=== PATIENT | male | born 1960 | race Caucasian/White ===

== ENCOUNTER 2017-06-13 06:01 | Emergency (ER) | payer MEDICAID ==
[2017-06-13] MEDS ORDERED: HYDROMORPHONE HCL INJ/PF 2 MG/ML AMPULE IV ONE (07:27)
[2017-06-13] MEDS ORDERED: PROMETHAZINE HCL INJ 50 MG/1 ML VIAL IM ONE (07:28)
[2017-06-13] MEDS ORDERED: PROMETHAZINE HCL INJ 25 MG/1 ML VIAL ONE (07:34)
--- NOTE | 2017-06-13 07:50 | ER Document Report ---
ED Neck/Back Problem - General Chief Complaint: Back Pain Stated Complaint: BACK PAIN Time Seen by Provider: 06/13/17 07:41 Mode of Arrival: Ambulatory Information source: Patient Notes: History of complain-56 years old male presents today with right lower back pain as well as diffuse abdominal pain more so on the right lower quadrant for the last few days. Earlier this morning it got worse therefore present to the ED. Associated with nausea no vomiting. Denies any fever chills denies any dysuria frequency or urgency. Denies any other constitutional symptoms REVIEW OF SYSTEMS: CONSTITUTIONAL : Denies fever, chills, or sweats. Denies recent illness. EENT: Denies eye, ear, throat, or mouth pain or symptoms. Denies nasal or sinus congestion or discharge. Denies throat, tongue, or mouth swelling or difficulty swallowing. CARDIOVASCULAR: Denies chest pain. Denies palpitations or racing or irregular heart beat. Denies ankle edema. RESPIRATORY: Denies cough, cold, or chest congestion. Denies shortness of breath, difficulty breathing, or wheezing. GASTROINTESTINAL: vomiting, or diarrhea. Denies blood in vomitus, stools, or per rectum. Denies black, tarry stools. Denies constipation. GENITOURINARY: Denies difficulty urinating, painful urination, burning, frequency, blood in urine, or discharge. MUSCULOSKELETAL: Denies back or neck pain or stiffness. Denies joint pain or swelling. SKIN: Denies rash, lesions or sores. HEMATOLOGIC : Denies easy bruising or bleeding. LYMPHATIC: Denies swollen, enlarged glands. NEUROLOGICAL: Denies confusion or altered mental status. Denies passing out or loss of consciousness. Denies dizziness or lightheadedness. Denies headache. Denies weakness or paralysis or loss of use of either side. Denies problems with gait or speech. Denies sensory loss, numbness, or tingling. Denies seizures. PSYCHIATRIC: Denies anxiety or stress. Denies depression, suicidal ideation, or homicidal ideation. ALL OTHER SYSTEMS REVIEWED AND NEGATIVE. Dictation was performed using [employer] recognition software PHYSICAL EXAMINATION: GENERAL: Patient seems to be in moderate pain. HEAD: Atraumatic, normocephalic. EYES: Pupils equal round and reactive to light, extraocular movements intact, sclera anicteric, conjunctiva are normal. ENT: Nares patent, oropharynx clear without exudates. Moist mucous membranes. NECK: Normal range of motion, supple without lymphadenopathy LUNGS: Breath sounds clear to auscultation bilaterally and equal. No wheezes rales or rhonchi. HEART: Regular rate and rhythm without murmurs ABDOMEN: Diffusely distended, tender all around more so in the right lower quadrant with rebound tenderness. Musculoskeletal: Normal range of motion, no pitting or edema. No cyanosis. NEUROLOGICAL: Cranial nerves grossly intact. Normal speech, normal gait. Normal sensory, motor exams PSYCH: Normal mood, normal affect. SKIN: Warm, Dry, normal turgor, no rashes or lesions noted. History of complain TRAVEL OUTSIDE OF THE [place] IN LAST 30 DAYS: No - HPI Patient complains to provider of: Pain. No: Injury, Neck, Upper back, Lower back, 6 Onset: Yesterday Where: No: Home, Indoors, Neighbor's, Detention, Outdoors, Public place, School, Sports, Work, Other Onset: Gradual Timing: denies: Constant, Waxing and waning, Still present, Gone now, Better, Worse, Location changes Quality of pain: denies: No pain, Achy, Burning, Cramping, Dull, Fullness, Pressure, Sharp, Stabbing, Throbbing, Other Severity: Severe Pain Level: 4 Context: denies: Became dizzy, Bending, Fainted, Fall/near-fall, Lifting, Seizure, Turning, Other Associated symptoms: Abdominal pain. denies: None, Chest pain, Chills, Constipation, Fever, Incontinence, Like prior neck/back pain, Motor loss, Numbness/tingling, Radiation to arm, Radiation to chest, Radiation to leg, Sensory loss, Sweaty, Unable to urinate, Lower back pain, Upper back pain, Other Exacerbated by: denies: Nothing, Cough/deep breaths, Movement of neck, Movement of trunk, Sitting position, Other Relieved by: denies: Nothing, Supine, Upright position, Remaining still, Lying on R side, Lying on L side, Other - Related Data Allergies/Adverse Reactions: clindamycin [Clindamycin] Allergy (Severe, Verified 06/13/17 06:59) Whelps, sores on skin, itching Iodinated Contrast- Oral and IV Dye [IV Dye, Iodine Containing] Allergy (Severe , Verified 06/13/17 06:59) Tachycardia, ?code Past Medical History - General Cannot obtain history due to: Dementia - Social History Smoking Status: Current Every Day Smoker Chew tobacco use (# tins/day): No Frequency of alcohol use: None Drug Abuse: None Family History: None Patient has suicidal ideation: No Patient has homicidal ideation: No - Past Medical History Cardiac Medical History: Reports: Hx Coronary Artery Disease, Hx Heart Attack - 2010, Hx Hypercholesterolemia, Hx Hypertension Pulmonary Medical History: Denies: Hx Asthma, Hx Bronchitis, Hx COPD, Hx Pneumonia Neurological Medical History: Reports: Hx Cerebrovascular Accident - "Light" 2007. Denies: Hx Seizures Renal/ Medical History: Denies: Hx Peritoneal Dialysis Musculoskeltal Medical History: Reports Hx Arthritis - Immunizations Immunizations up to date: Yes Hx Diphtheria, Pertussis, Tetanus Vaccination: No Review of Systems - Review of Systems Constitutional: No symptoms reported. denies: See HPI, Chills, Diaphoresis, Fever, Malaise, Weakness, Other, Weight gain, Weight loss, Recent illness EENT: denies: No symptoms reported, See HPI, Eye pain, Eye discharge, Blurred vision, Tearing, Double vision, Ear pain, Ear discharge, Nose pain, Nose congestion, Nose discharge, Sinus pressure, Sinus discharge, Throat pain, Difficulty swallowing, Throat swelling, Mouth pain, Mouth swelling, Dental problem, Vertigo, Other Cardiovascular: denies: No symptoms reported, See HPI, Chest pain, Palpitations , Heart racing, Orthopnea, Dyspnea, Syncope, Dizziness, Lightheaded, Edema, Other, Paroxysmal Nocturnal Dysp Respiratory: denies: No symptoms reported, See HPI, Cough, Hurts to breathe, Hemoptysis, Short of breath, Sputum, Stridor, Wheezing, Other Gastrointestinal: Abdominal pain. denies: No symptoms reported, See HPI, Abdomen distended, Diarrhea, Nausea, Vomiting, Constipation, Blood streaked bowels, Poor appetite, Poor fluid intake, Blood in vomit, Black stools, Rectal bleeding, Last bowel movement, Fecal incontinence, Other Genitourinary: denies: No symptoms reported, See HPI, Burning, Dysuria, Discharge, Frequency, Flank pain, Hematuria, Incontinence, Pain, Urgency, Retention, Other Male Genitourinary: denies: No symptoms reported, See HPI, Erectile dysfunction , Testicular pain, Penile discharge, Other Musculoskeletal: denies: No symptoms reported, See HPI, Back pain, Gout, Joint pain, Joint swelling, Muscle pain, Muscle stiffness, Neck pain, Deformity, Leg swelling, Ankle swelling, Other Skin: denies: No symptoms reported, See HPI, Change in color, Change in hair/ nails, Dryness, Lesions, Lumps, Rash, Other Hematologic/Lymphatic: denies: No symptoms reported, See HPI, Anemia, Blood clots, Easy bleeding, Easy bruising, Enlarged lymph nodes, Swollen glands, Other Physical Exam - Vital signs Vitals: Temp Pulse Resp BP Pulse Ox 98.2 F 82 20 135/97 H 94 06/13/17 06:10 06/13/17 06:10 06/13/17 06:10 06/13/17 06:10 06/13/17 06:10 Course - Re-evaluation Re-evalutation: 06/13/17 12:07 Patient is pain-free - Vital Signs Vital signs: Temp Pulse Resp BP Pulse Ox 98.2 F 76 20 152/79 H 95 06/13/17 06:10 06/13/17 07:00 06/13/17 07:00 06/13/17 08:01 06/13/17 07:45 - Laboratory Result Diagrams: 06/13/17 08:11 06/13/17 08:11 Laboratory results interpreted by me: 06/13/17 06/13/17 06/13/17 08:11 08:11 09:10 WBC 16.1 H Absolute Neutrophils 12.5 H Potassium 5.1 H Glucose 119 H Urine Ascorbic Acid 40 H - Diagnostic Test Radiology reviewed: Reports reviewed Radiology results interpreted by me: 06/13/17 12:07 CT of the abdomen was reported by radiologist as right ureteric stone Discharge - Discharge Clinical Impression: Acute abdominal pain in right lower quadrant, Right ureteral stone Leukocytosis Qualifiers: Leukocytosis type: other Qualified Code(s): D72.828 - Other elevated white blood cell count Condition: Fair Disposition: HOME, SELF-CARE Instructions: Kidney Stone ([facility]) Additional Instructions: Please call the urologist, follow with him. If pain persist or return come back to the ED Prescriptions: Ketorolac Tromethamine 10 mg PO TID #30 tablet Oxycodone HCl/Acetaminophen [Percocet 5-325 mg Tablet] 1 - 2 tab PO ASDIR PRN # 15 tablet PRN Reason: Tamsulosin HCl [Flomax] 0.4 mg PO DAILY #30 cap.er.24h Referrals: EDWARDO SCHROEDER MD [Primary Care Provider] - Follow up as needed
[2017-06-13 08:28] LABS: ABSOLUTE BASOPHILS # (AUTO) 0.1 10^3/uL (0.0-0.2); ABSOLUTE EOSINOPHILS # (AUTO) 0.1 10^3/uL (0.0-0.6); ABSOLUTE LYMPHOCYTES (AUTO) 2.2 10^3/uL (0.5-4.7); ABSOLUTE MONOCYTES (AUTO) 1.2 10^3/uL (0.1-1.4); ABSOLUTE NEUT (AUTO) 12.5 10^3/uL (1.7-8.2); BASOPHILS % (AUTO) 0.8 % (0-2); EOSINOPHILS % (AUTO) 0.4 % (0-6); HEMATOCRIT 45.8 % (37.9-51.0); HEMOGLOBIN 15.6 g/dL (13.5-17.0); LYMPHOCYTES % (AUTO) 13.7 % (13-45); MEAN CORPUSCULAR HEMOGLOBIN 31.5 pg (27.0-33.4); MEAN CORPUSCULAR VOLUME 93 fl (80-97); MONOCYTES % (AUTO) 7.7 % (3-13); PLATELET COUNT 221 10^3/uL (150-450); RED BLOOD COUNT 4.95 10^6/uL (4.35-5.55); SEGMENTED NEUTROPHILS % (AUTO) 77.4 % (42-78); TOTAL CELLS COUNTED % (AUTO) 100 %; WHITE BLOOD COUNT 16.1 10^3/uL (4.0-10.5)
[2017-06-13 08:41] LABS: ALANINE AMINOTRANSFERASE 29 U/L (21-72); ALKALINE PHOSPHATASE 71 U/L (38-126); ANION GAP 12 (5-19); ASPARTATE AMINO TRANSFERASE 23 U/L (17-59); BILIRUBIN,DIRECT 0.3 mg/dL (0.0-0.4); BILIRUBIN,TOTAL 0.6 mg/dL (0.2-1.3); BLOOD UREA NITROGEN 12 mg/dL (7-20); CARBON DIOXIDE 24 mmol/L (22-30); CHLORIDE 106 mmol/L (98-107); GLUCOSE 119 mg/dL (75-110); LIPASE 100.9 U/L (23-300); POTASSIUM 5.1 mmol/L (3.6-5.0); SODIUM 141.5 mmol/L (137-145)
[2017-06-13 09:38] LABS: APPEARANCE,URINE CLEAR; BILIRUBIN,URINE NEGATIVE (NEGATIVE); COLOR,URINE YELLOW; GLUCOSE, URINE NEGATIVE (NEGATIVE); KETONES,URINE NEGATIVE (NEGATIVE); LEUKOCYTE ESTERASE,URINE NEGATIVE (NEGATIVE); NITRITE,URINE NEGATIVE (NEGATIVE); PROTEIN,URINE NEGATIVE (NEGATIVE); URINE SPECIFIC GRAVITY 1.017; UROBILINOGEN,URINE NEGATIVE mg/dL (<2.0)
--- NOTE | 2017-06-13 09:57 | RADIOLOGY REPORT (SQ) ---
EXAM DESCRIPTION: CT ABD/PELVIS NO ORAL OR IV COMPLETED DATE/TIME: 06/13/2017 9:29 am REASON FOR STUDY: Acute abdominal pain rule out appendicitis COMPARISON: None. TECHNIQUE: CT scan of the abdomen and pelvis performed without intravenous or oral contrast. Images reviewed with lung, soft tissue, and bone windows. Reconstructed coronal and sagittal MPR images revi ewed. All images stored on PACS. All CT scanners at this facility use dose modulation, iterative reconstruction, and/or weight based d osing when appropriate to reduce radiation dose to as low as reasonably achievable (ALARA). [facility]: Dose Right [facility]: CareDose [facility]: Dose Right [facility]: Teradose 4D [facility]: Smart [email or web address] RADIATION DOSE: CT Rad equipment meets quality standard of care and radiation dose reduction techniq ues were employed. CTDIvol: 13.3 mGy. DLP: 771 mGy-cm.mGy. LIMITATIONS: None. FINDINGS: LOWER CHEST: No significant findings. No nodules or infiltrates. NON-CONTRASTED LIVER, SPLEEN, ADRENALS: Evaluation limited by lack of IV contrast. No identified sign ificant masses. PANCREAS: No masses. No peripancreatic inflammatory changes. GALLBLADDER: No identified stones by CT criteria. No inflammatory changes to suggest cholecystitis. RIGHT KIDNEY AND URETER: No suspicious masses. Assessment limited by lack of IV contrast. 1 mm calc ulus lower pole. No hydronephrosis or hydroureter. LEFT KIDNEY AND URETER: No suspicious masses. Assessment limited by lack of IV contrast. No signifi cant calcifications. No hydronephrosis or hydroureter. AORTA AND RETROPERITONEUM: No aneurysm. No retroperitoneal masses or adenopathy. BOWEL AND PERITONEAL CAVITY: No obvious masses or inflammatory changes. No free fluid. APPENDIX: Normal. PELVIS, BLADDER, AND ABDOMINAL WALL:No abnormal masses. No free fluid. Bladder normal. BONES: No significant findings. OTHER: No other significant finding. IMPRESSION: Small nonobstructing stone right kidney. No acute findings. COMMENT: Quality ID # [id number]: Final reports with documentation of one or more dose reduction techniques (e.g., Automated exposure control, adjustment of the mA and/or kV according to patient size, use of iterative reconstruction technique) TECHNICAL DOCUMENTATION: JOB ID: [id number] [email or web address]- All Rights Reserved Reading location - IP/workstation name: [email or web address]
[2017-06-13] MEDS ORDERED: KETOROLAC TROMETHAMINE INJ/PF 30 MG/1 ML SDV IV ONE (10:19)
[2017-06-13 13:12] VITALS: BP 141/82
== END 2017-06-13 13:14 | disposition home or self-care (01) ==
LOC: ER 06:01
DX: N20.1 Calculus of ureter (principal); M54.5 Low back pain; R10.84 Generalized abdominal pain; R11.0 Nausea; R14.0 Abdominal distension (gaseous); I25.10 Atherosclerotic heart disease of native coronary artery without angina pectoris; I10 Essential (primary) hypertension; I25.2 Old myocardial infarction; F17.200 Nicotine dependence, unspecified, uncomplicated; Z88.1 Allergy status to other antibiotic agents; Z91.041 Radiographic dye allergy status
CPT/HCPCS: 99284; 96372; 96374; 96375; 36415; 87086; 83690; 85025; 80053; 81001; 74176; J1885; J1170; J2550

== ENCOUNTER 2017-06-15 04:03 | Emergency (ER) | payer MEDICAID ==
[2017-06-15] MEDS ORDERED: NORMAL SALINE 1000 ML 1,000 ML IV ONE (04:35)
[2017-06-15] MEDS ORDERED: KETOROLAC TROMETHAMINE INJ/PF 30 MG/1 ML SDV IV ONE (04:36)
[2017-06-15] MEDS ORDERED: MORPHINE SULFATE 10 MG/ML INJ IV ONE (04:36)
[2017-06-15] MEDS ORDERED: ONDANSETRON HCL INJ/PF 4 MG/2 ML SDV IV ONE (04:36)
[2017-06-15 05:32] LABS: ABSOLUTE BASOPHILS # (AUTO) 0.1 10^3/uL (0.0-0.2); ABSOLUTE LYMPHOCYTES (AUTO) 1.5 10^3/uL (0.5-4.7); ABSOLUTE MONOCYTES (AUTO) 1.4 10^3/uL (0.1-1.4); ABSOLUTE NEUT (AUTO) 8.6 10^3/uL (1.7-8.2); EOSINOPHILS % (AUTO) 0.2 % (0-6); HEMATOCRIT 41.6 % (37.9-51.0); MEAN CORPUSCULAR HEMOGLOBIN 31.3 pg (27.0-33.4); MEAN CORPUSCULAR HGB CONC 33.7 g/dL (32.0-36.0); MEAN CORPUSCULAR VOLUME 93 fl (80-97); MONOCYTES % (AUTO) 12.2 % (3-13); PLATELET COUNT 257 10^3/uL (150-450); RED BLOOD COUNT 4.47 10^6/uL (4.35-5.55); RED CELL DISTRIBUTION WIDTH 12.7 % (11.5-14.0); SEGMENTED NEUTROPHILS % (AUTO) 73.6 % (42-78); TOTAL CELLS COUNTED % (AUTO) 100 %; WHITE BLOOD COUNT 11.7 10^3/uL (4.0-10.5)
[2017-06-15 05:42] LABS: ALANINE AMINOTRANSFERASE 22 U/L (21-72); ALBUMIN 3.7 g/dL (3.5-5.0); ALKALINE PHOSPHATASE 60 U/L (38-126); ANION GAP 9 (5-19); ASPARTATE AMINO TRANSFERASE 27 U/L (17-59); BILIRUBIN,DIRECT 0.3 mg/dL (0.0-0.4); BILIRUBIN,TOTAL 0.7 mg/dL (0.2-1.3); BLOOD UREA NITROGEN 14 mg/dL (7-20); CALCIUM 9.1 mg/dL (8.4-10.2); CARBON DIOXIDE 27 mmol/L (22-30); CHLORIDE 102 mmol/L (98-107); GLUCOSE 119 mg/dL (75-110); POTASSIUM 4.3 mmol/L (3.6-5.0); SODIUM 138.1 mmol/L (137-145); TOTAL PROTEIN 6.5 g/dL (6.3-8.2)
[2017-06-15] MEDS ORDERED: METHYLPREDNISOLONE INJ 125 MG/2 ML SDV IV ONE (05:56)
--- NOTE | 2017-06-15 06:23 | ER Document Report ---
ED General - General Chief Complaint: Possible Kidney Stone Stated Complaint: FLANK PAIN Time Seen by Provider: 06/15/17 04:22 Notes: Patient is a 56-year-old male comes emergency department for chief complaint of back pain, he states that he was seen yesterday for this as well, states he was told that he had a kidney stone that he was passing, states that he was told to come back if he had bad pain or if he vomited. He states that earlier he vomited twice, he is uncertain of fever but thought he had chills. Patient denies any injury, denies abdominal pain, chest pain, denies history of the same. Past medical history of hypertension, [place], only medications he takes are for blood pressure. TRAVEL OUTSIDE OF THE [place] IN LAST 30 DAYS: No - Related Data Allergies/Adverse Reactions: clindamycin [Clindamycin] Allergy (Severe, Verified 06/13/17 06:59) Whelps, sores on skin, itching Iodinated Contrast- Oral and IV Dye [IV Dye, Iodine Containing] Allergy (Severe , Verified 06/13/17 06:59) Tachycardia, ?code Past Medical History - General Information source: Patient - Social History Smoking Status: Current Every Day Smoker Frequency of alcohol use: None Drug Abuse: None Lives with: Family Family History: None Patient has suicidal ideation: No Patient has homicidal ideation: No - Past Medical History Cardiac Medical History: Reports: Hx Coronary Artery Disease, Hx Heart Attack - 2010, Hx Hypercholesterolemia, Hx Hypertension Pulmonary Medical History: Denies: Hx Asthma, Hx Bronchitis, Hx COPD, Hx Pneumonia Neurological Medical History: Denies: Hx Seizures Renal/ Medical History: Denies: Hx Peritoneal Dialysis Musculoskeltal Medical History: Reports Hx Arthritis - Immunizations Immunizations up to date: Yes Hx Diphtheria, Pertussis, Tetanus Vaccination: No Review of Systems - Review of Systems Constitutional: No symptoms reported EENT: No symptoms reported Cardiovascular: No symptoms reported Respiratory: No symptoms reported Gastrointestinal: No symptoms reported, See HPI Genitourinary: See HPI Male Genitourinary: No symptoms reported Musculoskeletal: See HPI Skin: No symptoms reported Hematologic/Lymphatic: No symptoms reported Neurological/Psychological: No symptoms reported Physical Exam - Vital signs Vitals: Temp Pulse Resp BP Pulse Ox 99.7 F 96 18 114/101 H 95 06/15/17 04:10 06/15/17 04:10 06/15/17 04:10 06/15/17 04:10 06/15/17 04:10 Interpretation: Normal - General General appearance: Alert, Anxious In distress: Mild - Patient appears uncomfortable on the bed, but has difficulty holding still - HEENT Head: Normocephalic, Atraumatic Eyes: Normal Pupils: PERRL - Respiratory Respiratory status: No respiratory distress Chest status: Nontender Breath sounds: Normal Chest palpation: Normal - Cardiovascular Rhythm: Regular Heart sounds: Normal auscultation Murmur: No - Abdominal Inspection: Normal Distension: No distension Bowel sounds: Normal Tenderness: Nontender Organomegaly: No organomegaly - Back Back: Tender - No CVA tenderness noted, there is some pain over the paralumbar musculature on both sides especially lower, no midline tenderness, no saddle anesthesia, normal distal neurovascular exam. Positive straight leg raise, worse on the right, positive axial loading. - Extremities General upper extremity: Normal inspection, Nontender, Normal color, Normal ROM , Normal temperature General lower extremity: Normal inspection, Nontender, Normal color, Normal ROM , Normal temperature, Normal weight bearing. No: Radha's sign - Neurological Neuro grossly intact: Yes Cognition: Normal Orientation: AAOx4 Debbie Coma Scale Eye Opening: Spontaneous Debbie Coma Scale Verbal: Oriented Goddard Coma Scale Motor: Obeys Commands Debbie Coma Scale Total: 15 Speech: Normal Motor strength normal: LUE, RUE, LLE, RLE Sensory: Normal - Psychological Associated symptoms: Normal affect, Normal mood - Skin Skin Temperature: Warm Skin Moisture: Dry Skin Color: Normal Course - Re-evaluation Re-evalutation: Patient's back exam is more suggestive of musculoskeletal injury. No concerning neurological symptoms reported, no neurological deficits noted on exam. I reviewed CAT scan from yesterday, shows 1 mm kidney stone in the kidney without evidence of passing ureteral stone or obstruction. Vital signs unremarkable. CBC, chemistry unremarkable. I discussed this with patient, patient admits that 3-1/2 days ago he tried to lift a 4 hernandez. Patient admits to gradually worsening symptoms since then. Suspect this is musculoskeletal in nature. Low suspicion of aortic dissection based on his vitals, presentation, previous CAT scan, and pulses. Providing patient with prednisone, muscle relaxers. Discussed vomiting. Patient had no chest pain, has a soft nontender abdomen, and he states that he vomited only after he took his pain medication on an empty stomach. EKG unremarkable. Discussed expectations, follow-up, return precautions patient detail. Patient states satisfaction and agreement. - Vital Signs Vital signs: Temp Pulse Resp BP Pulse Ox 97.8 F 78 18 125/57 L 94 06/15/17 08:45 06/15/17 08:45 06/15/17 08:45 06/15/17 08:45 06/15/17 08:45 - Laboratory Result Diagrams: 06/15/17 05:20 06/15/17 05:20 Laboratory results interpreted by me: 06/15/17 06/15/17 06/15/17 05:20 05:20 07:06 WBC 11.7 H Absolute Neutrophils 8.6 H Glucose 119 H Urine Ascorbic Acid 40 H Discharge - Discharge Clinical Impression: Lower back pain Qualifiers: Chronicity: acute Back pain laterality: bilateral Sciatica presence: with sciatica Sciatica laterality: sciatica of right side Qualified Code(s): M54.41 - Lumbago with sciatica, right side Condition: Stable Disposition: HOME, SELF-CARE Additional Instructions: Your laboratory workup does not show any concerning abnormalities. To avoid vomiting with pain medication either take after eating or take the nausea medication. I recommend taking the prednisone as prescribed and the muscle relaxer to help with suspected symptoms of herniated disc and sciatica. Rest, apply heat to your lower back, avoid lifting or twisting. This should gradually improve, follow-up with primary care for additional evaluation and management. Return if you worsen including inability to urinate, loss of bowel control, new numbness, fever of 100.4 or greater, returned vomiting, abdominal pain, or any other concerning or worsening symptoms. Prescriptions: Methocarbamol [Robaxin 750 mg Tablet] 750 mg PO Q6 #20 tablet Prednisone [Deltasone 10 mg Tablet] 10 mg PO ASDIR PRN #21 tablet PRN Reason: Referrals: EDWARDO SCHROEDER MD [Primary Care Provider] - Follow up as needed
[2017-06-15 07:25] LABS: APPEARANCE,URINE CLEAR; BILIRUBIN,URINE NEGATIVE (NEGATIVE); COLOR,URINE YELLOW; GLUCOSE, URINE NEGATIVE (NEGATIVE); KETONES,URINE NEGATIVE (NEGATIVE); LEUKOCYTE ESTERASE,URINE NEGATIVE (NEGATIVE); NITRITE,URINE NEGATIVE (NEGATIVE); PROTEIN,URINE NEGATIVE (NEGATIVE); URINE SPECIFIC GRAVITY 1.014; UROBILINOGEN,URINE NEGATIVE mg/dL (<2.0)
--- NOTE | 2017-06-15 07:43 | EKG REPORT ---
SEVERITY:- NORMAL ECG - SINUS RHYTHM : Confirmed by: Joseph Chu MD 15-Jun-2017 07:43:25
[2017-06-15 09:07] VITALS: BP 125/57
== END 2017-06-15 08:55 | disposition home or self-care (01) ==
LOC: ER 04:03
DX: M54.41 Lumbago with sciatica, right side (principal); R10.9 Unspecified abdominal pain; R11.10 Vomiting, unspecified; F17.200 Nicotine dependence, unspecified, uncomplicated; I25.10 Atherosclerotic heart disease of native coronary artery without angina pectoris; E78.00 Pure hypercholesterolemia, unspecified; I10 Essential (primary) hypertension; I25.2 Old myocardial infarction; Z88.3 Allergy status to other anti-infective agents
CPT/HCPCS: 93005; 99284; 96361; 96374; 96375; 36415; 85025; 80053; 81001; 93010; J2930; J1885; J2270; J2405; J7030

== ENCOUNTER 2017-07-11 02:41 | Emergency (ER) | payer MEDICAID ==
--- NOTE | 2017-07-11 02:51 | ER Document Report ---
ED General - General Stated Complaint: SHORTNESS OF BREATH Time Seen by Provider: 07/11/17 02:51 Mode of Arrival: Ambulatory Information source: Patient Notes: 56-year-old gentleman with past medical history of lumbar disc disease who is actively on steroids, prior history of PE who is not on anticoagulation for the past few years, coronary artery disease as well as hypertension who presented today for evaluation of chest pain as well as diaphoresis that started approximately a few hours prior to his arrival. Patient woke up with worsening back pain associated with mild nausea as well as diaphoresis. Patient does have history of lumbar disc disease and actively taken medications for his pain including tramadol as well as muscle relaxers and steroids. Patient had MRI performed at [facility] as well as [facility] with evidence of lumbar disc disease without any cord syndrome. Patient was referred to neurosurgery for further workup and was supposed to get lumbar injections after his prednisone is completed. In terms of his chest pain he had a brief episode last night, localized to the middle of the chest, no significant radiation, sharp, associated with inspiration, severity of symptoms 6 out of 10. Patient denied any cough, fever, upper respiratory congestion, hemoptysis. In terms of his back pain patient denies any fevers, denied any focal lower extremity weakness, urinary or bladder incontinence, prior history of IVDU or malignancy. TRAVEL OUTSIDE OF THE [place] IN LAST 30 DAYS: No - Related Data Allergies/Adverse Reactions: clindamycin [Clindamycin] Allergy (Severe, Verified 06/13/17 06:59) Whelps, sores on skin, itching Iodinated Contrast- Oral and IV Dye [IV Dye, Iodine Containing] Allergy (Severe , Verified 06/13/17 06:59) Tachycardia, ?code Past Medical History - General Information source: Patient - Social History Smoking Status: Current Every Day Smoker Family History: None - Past Medical History Cardiac Medical History: Reports: Hx Coronary Artery Disease, Hx Heart Attack - 2010, Hx Hypercholesterolemia, Hx Hypertension Pulmonary Medical History: Denies: Hx Asthma, Hx Bronchitis, Hx COPD, Hx Pneumonia Neurological Medical History: Reports: Hx Cerebrovascular Accident - "Light" 2007. Denies: Hx Seizures Renal/ Medical History: Denies: Hx Peritoneal Dialysis Musculoskeltal Medical History: Reports Hx Arthritis - Immunizations Immunizations up to date: Yes Hx Diphtheria, Pertussis, Tetanus Vaccination: No Review of Systems - Review of Systems Notes: REVIEW OF SYSTEMS: CONSTITUTIONAL: -fevers, -chills, diaphoresis EENT: -eye pain, -difficulty swallowing, -nasal congestion CARDIOVASCULAR: + Chest pain, -syncope. RESPIRATORY: -cough, -SOB GASTROINTESTINAL: -abdominal pain, -nausea, -vomiting, -diarrhea GENITOURINARY: -dysuria, -hematuria MUSCULOSKELETAL: + Back pain, -neck pain SKIN: -rash or skin lesions. HEMATOLOGIC: -easy bruising or bleeding. LYMPHATIC: -swollen, enlarged glands. NEUROLOGICAL: -altered mental status or loss of consciousness, -headache, - neurologic symptoms PSYCHIATRIC: -anxiety, -depression. ALL OTHER SYSTEMS REVIEWED AND NEGATIVE. Physical Exam - Vital signs Vitals: Resp Pulse Ox 13 96 07/11/17 02:53 07/11/17 02:53 - Notes Notes: Reviewed vital signs and nursing note as charted by RN. CONSTITUTIONAL: Alert and oriented and responds appropriately to questions HEAD: Normocephalic; atraumatic EYES: PERRL; Conjunctivae clear ENT: normal nose; no rhinorrhea; moist mucous membranes; pharynx without lesions noted NECK: Supple without meningismus; non-tender; no cervical lymphadenopathy, no masses CARD: Regular rate and rhythm; no murmurs, no clicks, no rubs, no gallops; symmetric distal pulses RESP: Normal chest excursion without splinting or tachypnea; breath sounds clear and equal bilaterally ABD/GI: Normal bowel sounds; non-distended; soft, nontender BACK: The back appears normal, mild tenderness to palpation along lumbar area, no obvious step-off or deformity, the lateral lower extremity examination with 5 out of 5 motor strength at the ankles as well as the knees, sensation is present in all dermatomes of the bilateral lower extremities, knee reflexes at the patella are +2 and equal, normal rectal tone EXT: Normal ROM in all joints; non-tender to palpation; no cyanosis, no effusions, no edema SKIN: Normal color for age and race; warm; dry; good turgor; capillary refill < 2 seconds; no acute lesions noted NEURO: .Cranial nerves 3-12 intact. Motor strength 5/5 bilaterally. Sensation intact to touch bilaterally. No pronator drift. Finger to nose intact bilaterally PSYCH: The patient's mood and manner are appropriate. Grooming and personal hygiene are appropriate. Course - Re-evaluation Re-evalutation: 56-year-old gentleman with medical history of coronary artery disease, prior history of PE as well as chronic back pain who presented today for evaluation of worsening back pain Patient did also complain of chest pain as well as shortness of breath last night Differential diagnoses includes acute on chronic back pain, ACS, PE, pneumonia, pleural effusion, dehydration, intra-abdominal infection, constipation, small bowel obstruction, acute cystitis, hematuria No suspicion for cord syndrome, patient has normal neurologic exam of bilateral lower extremities, therefore no need for MRI imaging today We will obtain basic lab work including CBC, BMP, urinalysis Chest x-ray, EKG, cardiac biomarkers, CT scan of his abdomen pelvis, d-dimer We will control his pain with IV morphine Reassess patient 07/11/17 04:59 Patient noted to have elevated d-dimer, will obtain ventilation/perfusion scan given the patient is allergic to IV contrast Patient noted to have leukocytosis, will obtain chest x-ray to rule out acute pneumonia We will obtain urinalysis to rule out acute cystitis 07/11/17 05:55 Patient is back from CT scan, complains of back pain again, will give another dose of morphine Reassess 07/11/17 07:27 CT scan without any evidence of acute intra-abdominal infection, no evidence of obstruction or any other abdominal pathology Patient has small nephrolithiasis without any evidence of hydronephrosis Patient is awaiting nuclear scan to rule out acute PE We will also repeat second troponin to rule out acute ACS 07/11/17 07:37 Patient is signed out to oncoming provider for final disposition Patient is awaiting VQ scan to rule out acute PE as well as second troponin If his VQ scan is negative and troponin is not elevating, anticipate discharge with close follow-up with his neurosurgeon for further management of his chronic back pain I have given prescription for Percocet for short course to help with his pain - Vital Signs Vital signs: Temp Pulse Resp BP Pulse Ox 99 F 92 15 142/99 H 97 07/11/17 02:58 07/11/17 02:58 07/11/17 06:05 07/11/17 06:05 07/11/17 06:05 - Laboratory Result Diagrams: 07/11/17 02:23 07/11/17 02:23 Laboratory results interpreted by me: 07/11/17 07/11/1718 02:23 02:23 02:23 WBC 17.1 H Absolute Neutrophils 12.7 H D-Dimer 0.77 H Glucose 146 H AST 14 L ALT 20 L - Diagnostic Test Radiology reviewed: Image reviewed - Chest x-ray without any new acute cardiopulmonary process CT scan of his abdomen did not reveal any evidence of acute intra-abdominal pathology other than small nephrolithiasis of his left kidney without any evidence of obstruction - EKG Interpretation by Me Additional EKG results interpreted by me: 07/11/17 07:24 EKG interpretation 3 AM Rate 94, sinus rhythm, right axis deviation RI interval 140, narrow QRS, QTC [address] elevations or depressions in any of the leads, no significant changes compared to electrocardiogram performed on June 15 Discharge - Discharge Clinical Impression: Lumbar radiculopathy, Lumbar disc disease Chest pain Qualifiers: Chest pain type: unspecified Qualified Code(s): R07.9 - Chest pain, unspecified Condition: Stable Prescriptions: Oxycodone HCl/Acetaminophen [Percocet 5-325 mg Tablet] 1 - 2 tab PO Q4H PRN #15 tablet PRN Reason: Referrals: EDWARDO SCHROEDER MD [Primary Care Provider] - Follow up as needed
[2017-07-11] MEDS ORDERED: PROMETHAZINE HCL INJ 25 MG/1 ML VIAL IV ONE (03:23)
[2017-07-11] MEDS ORDERED: MORPHINE SULFATE 10 MG/ML INJ IV ONE ×2 (03:23→05:55)
[2017-07-11 03:34] LABS: ABSOLUTE BASOPHILS # (AUTO) 0.1 10^3/uL (0.0-0.2); ABSOLUTE EOSINOPHILS # (AUTO) 0.1 10^3/uL (0.0-0.6); ABSOLUTE LYMPHOCYTES (AUTO) 2.9 10^3/uL (0.5-4.7); ABSOLUTE MONOCYTES (AUTO) 1.3 10^3/uL (0.1-1.4); ABSOLUTE NEUT (AUTO) 12.7 10^3/uL (1.7-8.2); BASOPHILS % (AUTO) 0.6 % (0-2); EOSINOPHILS % (AUTO) 0.8 % (0-6); HEMATOCRIT 40.6 % (37.9-51.0); HEMOGLOBIN 13.5 g/dL (13.5-17.0); MEAN CORPUSCULAR HEMOGLOBIN 30.6 pg (27.0-33.4); MEAN CORPUSCULAR HGB CONC 33.3 g/dL (32.0-36.0); MEAN CORPUSCULAR VOLUME 92 fl (80-97); MONOCYTES % (AUTO) 7.6 % (3-13); PLATELET COUNT 402 10^3/uL (150-450); RED BLOOD COUNT 4.42 10^6/uL (4.35-5.55); RED CELL DISTRIBUTION WIDTH 13.2 % (11.5-14.0); TOTAL CELLS COUNTED % (AUTO) 100 %; WHITE BLOOD COUNT 17.1 10^3/uL (4.0-10.5)
[2017-07-11 03:39] LABS: INTERNATIONAL RATION (INR) 0.94
[2017-07-11 03:43] LABS: ALANINE AMINOTRANSFERASE 20 U/L (21-72); ALBUMIN 3.7 g/dL (3.5-5.0); ALKALINE PHOSPHATASE 85 U/L (38-126); ANION GAP 14 (5-19); ASPARTATE AMINO TRANSFERASE 14 U/L (17-59); BILIRUBIN,DIRECT 0.3 mg/dL (0.0-0.4); BILIRUBIN,TOTAL 0.3 mg/dL (0.2-1.3); BLOOD UREA NITROGEN 13 mg/dL (7-20); CALCIUM 9.6 mg/dL (8.4-10.2); CARBON DIOXIDE 27 mmol/L (22-30); CHLORIDE 98 mmol/L (98-107); GLUCOSE 146 mg/dL (75-110); POTASSIUM 4.3 mmol/L (3.6-5.0); SODIUM 139.3 mmol/L (137-145); TOTAL PROTEIN 7.1 g/dL (6.3-8.2)
[2017-07-11 05:47] LABS: AMORPHOUS SEDIMENT,URINE TRACE /HPF; APPEARANCE,URINE CLEAR; BILIRUBIN,URINE NEGATIVE (NEGATIVE); COLOR,URINE YELLOW; GLUCOSE, URINE NEGATIVE (NEGATIVE); KETONES,URINE NEGATIVE (NEGATIVE); LEUKOCYTE ESTERASE,URINE NEGATIVE (NEGATIVE); NITRITE,URINE NEGATIVE (NEGATIVE); PROTEIN,URINE NEGATIVE (NEGATIVE); URINE SPECIFIC GRAVITY 1.018; UROBILINOGEN,URINE NEGATIVE mg/dL (<2.0)
--- NOTE | 2017-07-11 06:28 | RADIOLOGY REPORT (SQ) ---
EXAM DESCRIPTION: CT ABDOMEN PELVIS WITHOUT IV CONTRAST CLINICAL HISTORY: 56 years Male, abdominal pain Comparison: 4.25.18. Technique: No contrast. Coronal and sagittal reformat. This exam was performed according to our departmental dose-optimization program, which includes automated exposure control, adjustment of the mA and/or kV according to patient size and/or use of iterative reconstruction technique.[facility]: Dose Right [facility]: CareDose [facility]: Dose Right [facility]: Teradose 4D [facility]: [employer] LIMITATIONS: None. Findings: 0.2 cm uncomplicated right renal stone. Normal appendix. Atherosclerosis. Bfbo-[id number] disc desiccation between the L2 and S1 levels, mild lower lumbar spondylosis, moderate bilateral L5 foraminal stenosis. Small atelectasis or scar bilateral lower lungs. Unenhanced lower thorax, abdominopelvic structures, and musculoskeleton appear otherwise grossly unremarkable. Impression: No acute findings. Small right nephrolithiasis.
--- NOTE | 2017-07-11 07:09 | RADIOLOGY REPORT (SQ) ---
EXAM DESCRIPTION: XR CHEST 2 VIEWS CLINICAL HISTORY: 56 years Male, pneumonia COMPARISON: None. FINDINGS: Moderate lung volume, clear parenchyma, normal cardiac silhouette, and intact bony thorax. IMPRESSION: No acute cardiopulmonary findings.
--- NOTE | 2017-07-11 07:19 | EKG REPORT ---
SEVERITY:- DEFECTIVE ECG - SINUS OR ECTOPIC ATRIAL RHYTHM INCORRECT LEAD PLACEMENT NONDIAGNOSTIC ST DEPRESSION : Confirmed by: Joseph Chu MD 11-Jul-2017 07:19:32
--- NOTE | 2017-07-11 08:24 | RADIOLOGY REPORT (SQ) ---
EXAM DESCRIPTION: NM LUNG VENT/PERF SCAN COMPLETED DATE/TIME: 07/11/2017 7:57 am REASON FOR STUDY: SOB, hx of PE COMPARISON: None. RADIONUCLIDE AND DOSE: 5.4 millicuries TC-99m MAA Intravenous 32.2 millicuries TC-99m DTPA Inhaled aerosol TECHNIQUE: Eight views of the lungs acquired post ventilation of DTPA aerosol. Eight matching views of the lungs acquired following injection of MAA. LIMITATIONS: None. FINDINGS: VENTILATION: Symmetric and homogeneous distribution of DTPA aerosol during ventilatory pha se. No significant areas of photopenia. PERFUSION: Perfusion images with normal homogenous activity and no wedge-shaped or segmental defects. No ventilation-perfusion mismatches. OTHER: No other significant finding. IMPRESSION: Low probability for pulmonary embolus. TECHNICAL DOCUMENTATION: JOB ID: [id number]- All Rights Reserved Reading location - IP/workstation name: [email or web address]
[2017-07-11 09:23] VITALS: BP 140/96
[2017-07-11] MEDS ORDERED: ONDANSETRON ODT 4 MG TAB (6 TAB/ER DISP) PO PRN (09:23)
[2017-07-11] MEDS ORDERED: FENTANYL CITRATE INJ/PF 100 MCG/2 ML AMPUL IV ONE (09:23)
[2017-07-11] MEDS ORDERED: ONDANSETRON HCL INJ/PF 4 MG/2 ML SDV IV ONE (09:24)
== END 2017-07-11 09:55 | disposition home or self-care (01) ==
LOC: ER 02:41
DX: M54.16 Radiculopathy, lumbar region (principal); M51.36 Other intervertebral disc degeneration, lumbar region; R07.9 Chest pain, unspecified; R11.0 Nausea; M54.9 Dorsalgia, unspecified; G89.29 Other chronic pain; Z79.52 Long term (current) use of systemic steroids; Z86.711 Personal history of pulmonary embolism; Z79.01 Long term (current) use of anticoagulants; F17.200 Nicotine dependence, unspecified, uncomplicated; I25.10 Atherosclerotic heart disease of native coronary artery without angina pectoris; I25.2 Old myocardial infarction; I10 Essential (primary) hypertension
CPT/HCPCS: 93005; 96376; 99285; 96374; 96375; 36415; 85025; 85610; 80053; 81001; 84484; 85379; 71046; 78582; 74176; 93010; A9540; A9567; J3010; J2270; J2550; Q9969

== ENCOUNTER 2018-06-26 00:11 | Emergency (ER) | payer MEDICAID ==
[2018-06-26 00:53] VITALS: BP 180/92
== END 2018-06-26 03:00 | disposition left against medical advice (07) ==
LOC: ER 00:11
DX: Z53.21 Procedure and treatment not carried out due to patient leaving prior to being seen by health care provider (principal)

== ENCOUNTER 2019-12-30 04:09 | Emergency (ER) | payer MEDICAID ==
--- NOTE | 2019-12-30 06:01 | ER Document Report ---
ED General <LISET ESCOBAR - Last Filed: 12/30/19 14:13> - General Mode of Arrival: Medic Information source: Patient TRAVEL OUTSIDE OF THE [place] IN LAST 30 DAYS: No - HPI Onset: Just prior to arrival Onset/Duration: Sudden, Better Quality of pain: Achy Severity: Severe Pain Level: 5 Associated symptoms: Chest pain, Shortness of breath, Weakness Exacerbated by: Movement, Deep breathing Relieved by: Remaining still Similar symptoms previously: No Recently seen / treated by doctor: No <ANDREW ZEPEDA JR - Last Filed: 12/30/19 22:44> - General Primary Care Provider: EDWARDO SCHROEDER MD [Primary Care Provider] - Follow up as needed IRAJ LONGORIA MD [ACTIVE STAFF] - Follow up as needed Notes: 59-year-old male arrives by EMS after having chest pain which awoke him around 0200 from sleep with 9 out of 10 chest pain. Patient received nitroglycerin and pain was 1 out of 10 upon arrival. Patient has a history of CAD with 1 stent placed in 2009 in [place] by . Patient smokes 1 to 3 packs of cigarettes per day since he was a teenager. Patient has a prior history of pulmonary embolism but had to quit his Coumadin 5 years ago because of anticoagulative bleeding. Patient had severe pressure on his chest when this occurred with associated slurred speech and left upper extremity numbness. Patient reported he had some shortness of breath some nausea. Please note the computers are down at the time and we had to go on papers and I am transmitting information from papers to computer. The patient was referred to Dr. Joseph Escobar at 06 100. Investigation on this patient continued with a CTA revealing a PE but troponins were normal. (ANDREW ZEPEDA JR) - HPI Notes: Chief complaint: Chest pain History of present illness: 59-year-old male seen initially overnight by Dr. Anrdew Zepeda for evaluation of chest pain and turned over to me at 6 AM today. This gentleman tells me that he had awakened from sleep and had a sudden sharp discomfort left anterior chest area which lasted about 30 seconds. He had some tingling radiating into his left arm. He states that he got diaphoretic during that time. He denied nausea vomiting. His symptoms have resolved and have not returned. Patient previously had stent placement over 10 years ago at [facility] in [facility]. He continues to smoke in excess of pack cigarettes per day. He has a history of hypertension hyperlipidemia. He is not diabetic. Family history is positive for CAD. Also the patient reports that he previously was treated for PE over 5 years ago. He took Coumadin for an extended period of time. This was subsequently just stopped after he had a major bleeding episode. He denies any shortness of breath. He denies any recent travel. He denies any pain or swelling in his lower extremities. He is not being treated for any malignancy at this time. (LISET ESCOBAR) - Related Data Allergies/Adverse Reactions: clindamycin [Clindamycin] Allergy (Severe, Verified 06/13/17 06:59) Whelps, sores on skin, itching Iodinated Contrast Media [IV Dye, Iodine Containing] Allergy (Severe, Verified 06/13/17 06:59) Tachycardia, ?code Past Medical History - General Information source: Patient, [facility] Records - Social History Smoking Status: Current Every Day Smoker Frequency of alcohol use: None Drug Abuse: None - Past Medical History Cardiac Medical History: Reports: Hx Pulmonary Embolism Endocrine Medical History: Denies: Hx Diabetes Mellitus Type 1, Hx Diabetes Mellitus Type 2 <LISET ESCOBAR - Last Filed: 12/30/19 14:13> - General Information source: Patient - Social History Smoking Status: Current Every Day Smoker Cigarette use (# per day): Yes Chew tobacco use (# tins/day): No Smoking Education Provided: Yes Lives with: Family Family History: None, Reviewed & Not Pertinent, CAD Patient has suicidal ideation: No Patient has homicidal ideation: No - Past Medical History Cardiac Medical History: Reports: Hx Coronary Artery Disease, Hx Heart Attack - 2010, Hx Hypercholesterolemia, Hx Hypertension Pulmonary Medical History: Denies: Hx Asthma, Hx Bronchitis, Hx COPD, Hx Pneumonia Neurological Medical History: Reports: Hx Cerebrovascular Accident - "Light" 2007. Denies: Hx Seizures Renal/ Medical History: Denies: Hx Peritoneal Dialysis Musculoskeletal Medical History: Reports Hx Arthritis - Immunizations Immunizations up to date: Yes Hx Diphtheria, Pertussis, Tetanus Vaccination: No <ANDREW ZEPEDA JR - Last Filed: 12/30/19 22:44> Review of Systems <LISET ESCOBAR - Last Filed: 12/30/19 14:13> - Review of Systems Constitutional: See HPI, Weakness EENT: No symptoms reported Cardiovascular: See HPI, Chest pain, Lightheaded Respiratory: See HPI, Short of breath Gastrointestinal: No symptoms reported Genitourinary: No symptoms reported Male Genitourinary: No symptoms reported Musculoskeletal: No symptoms reported Skin: No symptoms reported Hematologic/Lymphatic: No symptoms reported Neurological/Psychological: See HPI, Weakness -: Yes All other systems reviewed and negative <ANDREW ZEPEDA JR - Last Filed: 12/30/19 22:44> - Review of Systems Notes: Constitutional: Negative for fever. HENT: Negative for sore throat. Eyes: Negative for visual changes. Cardiovascular: As per HPI. Respiratory: Negative for shortness of breath. Gastrointestinal: Negative for abdominal pain, vomiting or diarrhea. Genitourinary: Negative for dysuria. Musculoskeletal: Negative for back pain. Skin: Patient notes some itchy rash over his upper extremities and anterior chest area related to multiple ant bites which were sustained last week. Neurological: Negative for headaches, weakness or numbness. 10 point ROS negative except as marked above and in HPI. (LISET ESCOBAR) Physical Exam <LISET ESCOBAR - Last Filed: 12/30/19 14:13> - Vital signs Interpretation: Normal - General General appearance: Appears well, Alert - HEENT Head: Normocephalic, Atraumatic Eyes: Normal Pupils: PERRL - Respiratory Respiratory status: No respiratory distress Chest status: Nontender Breath sounds: Normal Chest palpation: Normal - Cardiovascular Rhythm: Regular Heart sounds: Normal auscultation Murmur: No - Abdominal Inspection: Normal Distension: No distension Bowel sounds: Normal Tenderness: Nontender Organomegaly: No organomegaly - Rectal Prostate: Other - deferred - Genitourinary Scrotum: Other - deferred - Back Back: Normal, Nontender - Extremities General upper extremity: Normal inspection, Nontender, Normal color, Normal ROM, Normal temperature General lower extremity: Normal inspection, Nontender, Normal color, Normal ROM, Normal temperature, Normal weight bearing. No: Radha's sign - Neurological Neuro grossly intact: Yes Cognition: Normal Orientation: AAOx4 Debbie Coma Scale Eye Opening: Spontaneous Debbie Coma Scale Verbal: Oriented Debbie Coma Scale Motor: Obeys Commands [place] Coma Scale Total: 15 Speech: Normal Motor strength normal: LUE, RUE, LLE, RLE Sensory: Normal - Psychological Associated symptoms: Normal affect, Normal mood - Skin Skin Temperature: Warm Skin Moisture: Dry Skin Color: Normal <ANDREW ZEPEDA JR - Last Filed: 12/30/19 22:44> - Vital signs Vitals: Temp Pulse Resp BP Pulse Ox 98.1 F 72 16 127/80 H 97 12/30/19 05:34 12/30/19 05:34 12/30/19 05:34 12/30/19 05:34 12/30/19 05:34 - Notes Notes: GENERAL: Well-developed well-nourished appearing in no acute distress. SKIN: Multiple insect bites over both upper extremities and center of the upper chest. Good turgor no rashes. HEAD: Normocephalic atraumatic. EYES: PERRLA. EOMI. Conjunctivae and sclerae clear. EARS: CANALS AND TMS CLEAR. NOSE: CLEAR. MOUTH: Moist mucosa. Good dentition. No stridor or edema. No drooling. NECK: Supple. No masses or thyromegaly. No adenopathy. Carotids 2+ without bruits. No JVD. BACK: Symmetrical without tenderness. CHEST: Reproducible pain with palpation left anterior chest area. Respirations unlabored. Breath sounds clear and symmetrical. HEART: Regular rhythm. No murmur gallop or rub. ABDOMEN: Soft nontender without masses, organomegaly or rebound. Bowel sounds normally active. No bruits. GENITALIA: Deferred. EXTREMITIES: No edema. No calf tenderness. Cap refill less than 1.5 seconds. Dorsalis pedis and posterior tibial pulses 3+ and symmetrical. NEUROLOGICAL: GCS 15. Alert and oriented x3. Normal gait. Fluent speech. Cranial nerves II through XII intact. Sensorimotor and cerebellar normal. Normal tone. PSYCHIATRIC: Appropriate affect. (LISET ESCOBAR) Course - Laboratory Result Diagrams: 12/30/19 05:00 12/30/19 05:00 - Diagnostic Test Radiology reviewed: Image reviewed, Reports reviewed <LISET ESCOBAR - Last Filed: 12/30/19 14:13> - Laboratory Result Diagrams: 12/30/19 05:00 12/30/19 05:00 - Diagnostic Test Radiology reviewed: Reports reviewed - EKG Interpretation by Me EKG shows normal: Sinus rhythm Rate: Normal Rhythm: NSR - 72 beats per minute; no obvious ST elevation no T wave depression no T wave depression or T wave elevation and this was read by myself <ANDREW ZEPEDA JR - Last Filed: 12/30/19 22:44> - Re-evaluation Re-evalutation: 12/30/19 10:28 Unremarkable EKG which I have again reviewed myself . 2 - troponins more than 3 hours apart. Description of his pain as well as his past history of PE raises concerns in my mind. I discussed this with patient we agreed that we will get a CTA of the chest. Dr. Zepeda had already talked about cardiac findings with on-call air surveillance operator Dr. Iraj Longoria who felt the patient could be further evaluated for cardiac status with an exercise study which she would be happy to arrange on an outpatient basis. 12/30/19 10:30 12/30/19 14:14 Patient has a small wedge-shaped defect in the right lung consistent with PE. He is hemodynamically stable and pain-free. I think he can reasonably be started on Eliquis as an outpatient. We note that he has had past bleeding on C oumadin. I have cautioned him to watch for any signs of abnormal bleeding and seek medical attention immediately under such circumstances. He is otherwise going to follow-up with his primary care physician within the next 2 to 3 days. I am also going to provide him an outpatient cardiology with Dr. Longoria referral for follow-up testing. Findings, clinical impression and plan of treatment have been discussed with patient/family. Understanding of current findings and recommendations has been acknowledged by them and there is agreement regarding disposition and follow-up. (LISET ESCOBAR) - Vital Signs Vital signs: Temp Pulse Resp BP Pulse Ox 97.8 F 70 12 138/68 H 97 12/30/19 14:35 12/30/19 14:35 12/30/19 14:35 12/30/19 14:35 12/30/19 14:35 - Laboratory Laboratory results interpreted by me: 12/30/19 12/30/19 05:00 05:00 WBC 12.4 H Glucose 116 H - Diagnostic Test Radiology results interpreted by me: 12/30/19 14:13 Chest X-Ray 12/30/19 00:00 IMPRESSION: NO ACUTE RADIOGRAPHIC FINDING IN THE CHEST. Head CT 12/30/19 00:00 IMPRESSION: 1. No acute intracranial abnormality by CT criteria. This exam was performed according to our departmental dose-optimization program, which includes automated exposure control, adjustment of the mA and/or kV according to patient size and/or use of iterative reconstruction technique. Lung Scan-VQ NM 12/30/19 12:17 IMPRESSION: Wedge-shaped defect suspicious for peripheral pulmonary embolus in the right lung. (LISET ESCOBAR) Critical Care Note <ANDREW ZEPEDA JR - Last Filed: 12/30/19 22:44> - Critical Care Note Comments: I spoke with Dr. Longoria as noted earlier and he requested to troponins. Labs appear to be within normal limits. Chest x-ray at with interstitial pattern fibrotic and CT of head pending. This case was turned over to iggy Escobar at 07 29 for final disposition (ANDREW ZEPEDA JR) Discharge <LISET ESCOBAR - Last Filed: 12/30/19 14:13> <ANDREW ZEPEDA JR - Last Filed: 12/30/19 22:44> - Discharge Clinical Impression: Chest pain Acute pulmonary embolus Qualifiers: Pulmonary embolism type: other Acute cor pulmonale presence: without acute cor pulmonale Qualified Code(s): I26.99 - Other pulmonary embolism without acute cor pulmonale Condition: Stable Disposition: HOME, SELF-CARE Additional Instructions: You have evidence of a small blood clot in your lungs. You going to be started on a medication called Eliquis twice daily to treat this. You need to follow-up with your primary care physician within the next 24 hours. You should return here immediately if you have overall worsening of your condition or if you have any abnormal bleeding. Because you also have a past history of heart disease you will additionally need follow-up as an outpatient with a air surveillance operator. We are providing you the name and contact information for the on-call air surveillance operator in order to set up a visit within the next 7 days. Return here as needed for new or worsening symptoms: Pain that is worsening or unimproved Episodes of fainting Uncontrolled vomiting High fever or shaking chills Any abnormal bleeding Overall worsening Prescriptions: Apixaban [Eliquis 5 mg Tablet] 10 mg PO BID 7 Days #14 tablet Referrals: EDWARDO SCHROEDER MD [Primary Care Provider] - Follow up as needed IRAJ LONGORIA MD [ACTIVE STAFF] - Follow up as needed
[2019-12-30 06:02] LABS: INTERNATIONAL RATION (INR) 0.99; PARTIAL THROMBOPLASTIN TIME 28.1 SEC (23.5-35.8); PROTHROMBIN TIME 13.3 SEC (11.4-15.4)
[2019-12-30 06:06] LABS: ABSOLUTE BASOPHILS # (AUTO) 0.1 10^3/uL (0.0-0.2); ABSOLUTE EOSINOPHILS # (AUTO) 0.3 10^3/uL (0.0-0.6); ABSOLUTE LYMPHOCYTES (AUTO) 3.4 10^3/uL (0.5-4.7); ABSOLUTE MONOCYTES (AUTO) 1.1 10^3/uL (0.1-1.4); ABSOLUTE NEUT (AUTO) 7.5 10^3/uL (1.7-8.2); BASOPHILS % (AUTO) 1.2 % (0-2); EOSINOPHILS % (AUTO) 2.5 % (0-6); HEMATOCRIT 45.8 % (37.9-51.0); HEMOGLOBIN 15.6 g/dL (13.5-17.0); LYMPHOCYTES % (AUTO) 27.3 % (13-45); MEAN CORPUSCULAR HEMOGLOBIN 31.8 pg (27.0-33.4); MEAN CORPUSCULAR HGB CONC 34.2 g/dL (32.0-36.0); MEAN CORPUSCULAR VOLUME 93 fl (80-97); MONOCYTES % (AUTO) 8.5 % (3-13); PLATELET COUNT 264 10^3/uL (150-450); RED BLOOD COUNT 4.91 10^6/uL (4.35-5.55); RED CELL DISTRIBUTION WIDTH 12.5 % (11.5-14.0); SEGMENTED NEUTROPHILS % (AUTO) 60.5 % (42-78); TOTAL CELLS COUNTED % (AUTO) 100 %; WHITE BLOOD COUNT 12.4 10^3/uL (4.0-10.5)
[2019-12-30 06:14] LABS: ALBUMIN 4.2 g/dL (3.5-5.0); ALKALINE PHOSPHATASE 65 U/L (38-126); ANION GAP 9 (5-19); ASPARTATE AMINO TRANSFERASE 25 U/L (17-59); BILIRUBIN,DIRECT 0.1 mg/dL (0.0-0.4); BILIRUBIN,TOTAL 0.6 mg/dL (0.2-1.3); BLOOD UREA NITROGEN 10 mg/dL (7-20); CALCIUM 9.5 mg/dL (8.4-10.2); CARBON DIOXIDE 28 mmol/L (22-30); CHLORIDE 101 mmol/L (98-107); GLUCOSE 116 mg/dL (75-110); POTASSIUM 4.4 mmol/L (3.6-5.0); TOTAL PROTEIN 6.8 g/dL (6.3-8.2)
--- NOTE | 2019-12-30 06:32 | RADIOLOGY REPORT (SQ) ---
EXAM DESCRIPTION: CT HEAD WITHOUT IV CONTRAST COMPLETED DATE/TME: 12/30/2019 05:53 CLINICAL HISTORY: DIZZY, LT ARM TINGLE COMPARISON: None available TECHNIQUE: Axial CT of the head obtained from the skull apex to the skull base without contrast. FINDINGS: No acute intracranial hemorrhage identified. No mass, mass effect, shift of the midline, abnormal extra-axial fluid collection or CT evidence of acute ischemic change identified. The ventricular system and sulcal spaces are moderately enlarged. Scattered areas of hypodensity throughout the supratentorial white matter are nonspecific and may be related to chronic small vessel ischemic change. Polypoid mucosal thickening of the paranasal sinuses. Opacities in the mastoid air cells may represent serous or inflammatory debris.. No skull fracture identified. Visualized orbits and globes are unremarkable. Atherosclerotic calcification of the intracranial internal carotid arteries. IMPRESSION: 1. No acute intracranial abnormality by CT criteria. This exam was performed according to our departmental dose-optimization program, which includes automated exposure control, adjustment of the mA and/or kV according to patient size and/or use of iterative reconstruction technique.
--- NOTE | 2019-12-30 08:54 | RADIOLOGY REPORT (SQ) ---
EXAM DESCRIPTION: CHEST 2 VIEWS IMAGES COMPLETED DATE/TIME: 12/30/2019 5:59 am REASON FOR STUDY: DIZZY, LT ARM TINGLE COMPARISON: 07/11/2017 EXAM PARAMETERS: NUMBER OF VIEWS: two views TECHNIQUE: Digital Frontal and Lateral radiographic views of the chest acquired. RADIATION DOSE: NA LIMITATIONS: none FINDINGS: LUNGS AND PLEURA: No opacities, masses or pneumothorax. No pleural effusion. MEDIASTINUM AND HILAR STRUCTURES: No masses or contour abnormalities. HEART AND VASCULAR STRUCTURES: Heart normal size. No evidence for failure. BONES: No acute findings. HARDWARE: None in the chest. OTHER: No other significant finding. IMPRESSION: NO ACUTE RADIOGRAPHIC FINDING IN THE CHEST. TECHNICAL DOCUMENTATION: JOB ID: [id number] 2010 [employer]- All Rights Reserved Reading location - IP/workstation name: [email or web address]
--- NOTE | 2019-12-30 13:02 | RADIOLOGY REPORT (SQ) ---
EXAM DESCRIPTION: NM LUNG PERFUSION SCAN IMAGES COMPLETED DATE/TIME: 12/30/2019 12:46 pm REASON FOR STUDY: CP; prior hx. PE COMPARISON: 07/11/2017 RADIONUCLIDE AND DOSE: 5.24 millicuries TC-99m MAA The route of agent administration: Intravenous TECHNIQUE: Eight views of the lungs acquired following injection of MAA. LIMITATIONS: None. FINDINGS: PERFUSION: There is a wedge-shaped defect in the right lung best seen on the ZELAY[employer] projectio n.. OTHER: No other significant finding. IMPRESSION: Wedge-shaped defect suspicious for peripheral pulmonary embolus in the right lung. TECHNICAL DOCUMENTATION: JOB ID: [id number] 2010 [employer]- All Rights Reserved Reading location - IP/workstation name: [email or web address]
[2019-12-30] MEDS ORDERED: APIXABAN 5 MG TABLET PO ONE (14:16)
[2019-12-30 14:37] VITALS: BP 138/68
--- NOTE | 2019-12-30 17:18 | EKG REPORT ---
SEVERITY:- BORDERLINE ECG - SINUS RHYTHM PROBABLE LEFT ATRIAL ABNORMALITY : Confirmed by: Sukumar Wen 30-Dec-2019 17:17:56
== END 2019-12-30 14:44 | disposition home or self-care (01) ==
LOC: ER 04:09
DX: I26.99 Other pulmonary embolism without acute cor pulmonale (principal); R07.9 Chest pain, unspecified; R06.02 Shortness of breath; R53.1 Weakness; F17.210 Nicotine dependence, cigarettes, uncomplicated; Z86.711 Personal history of pulmonary embolism; Z86.73 Personal history of transient ischemic attack (TIA), and cerebral infarction without residual deficits; I25.2 Old myocardial infarction
CPT/HCPCS: 93005; 99285; 36415; 84443; 85025; 85610; 85730; 80053; 84484; 71046; 78580; 70450; 93010; A9540; Q9969